=== PATIENT | male | born 1975 | race African-American/Black ===

== ENCOUNTER 2017-08-12 09:46 | Inpatient (IN) | payer BC, OTHER ==
[~2017-08-12] VITALS: Ht 175.3 cm; Wt 106.6 kg
[2017-08-12 08:00] VITALS: BP 169/137
[2017-08-12] MEDS ORDERED: SACU1TAB7 PO (10:02)
[2017-08-12] MEDS ORDERED: AMLO2.5T45 PO (10:02)
[2017-08-12] MEDS ORDERED: CARV6.2548 PO (10:02)
[2017-08-12] MEDS ORDERED: FURO40TA5 PO (10:02)
[2017-08-12] MEDS ORDERED: ISOS1TAB PO (10:02)
[2017-08-12] MEDS ORDERED: NITROGLYCERIN OINT 1GM/INCH UDPKT TD ONE (10:30)
[2017-08-12] MEDS ORDERED: ASPIRIN 81MG TABLET PO ONE (10:30)
[2017-08-12] MEDS ORDERED: FUROSEMIDE 40MG/4ML VIAL IV ONE (10:30)
[2017-08-12] MEDS ORDERED: NITROGLYCERIN 0.4MG TABLET SL SL PRN (10:30)
[2017-08-12 10:37] LABS: BASOPHILS % 0.9 % (0.0-2.0); EOSINOPHILS % 0.5 % (0.0-5.0); HEMATOCRIT. 42.2 % (42.0-52.0); HEMOGLOBIN. 13.8 g/dL (14.0-18.0); LYMPHOCYTES % 12.4 % (20.0-50.0); MEAN CORPUSCULAR VOLUME 91.4 fL (80.0-94.0); MEAN PLATELET VOLUME 7.8 fl (7.4-10.4); MONOCYTES % 5.8 % (2.0-8.0); NEUTROPHILS % 80.4 % (40.0-76.0); PLATELET 280 x1000/uL (130-400); RED BLOOD CELL COUNT 4.61 mill/uL (4.7-6.1); RED CELL DISTRIBUTION WIDTH 14.7 % (11.6-14.6)
[2017-08-12 10:42] LABS: CLARITY URINE CLEAR (CLEAR); COLOR URINE DARK YELLOW (YELLOW); GLUCOSE URINE NEGATIVE (NEGATIVE); KETONES URINE NEGATIVE (NEGATIVE); LEUKOCYTE ESTERASE URINE NEGATIVE (NEGATIVE); NITRITE URINE NEGATIVE (NEGATIVE); OCCULT BLOOD URINE 1+ (NEGATIVE); PH URINE 5.5 (4.5-8.0); PROTEIN URINE 4+ (NEGATIVE); SPECIFIC GRAVITY URINE 1.024 (1.005-1.030)
[2017-08-12 10:47] LABS: D-DIMER 0.26 mg/L FEU (<0.50); INR 1.1; PROTHROMBIN TIME 11.5 sec (9.4-11.6)
[2017-08-12 10:55] LABS: CARBON DIOXIDE 21 mEq/L (21-32); CHLORIDE 107 mEq/L (98-107)
[2017-08-12 10:59] LABS: *AMPHETAMINES SCREEN URINE NEGATIVE (NEGATIVE); *BARBITURATES SCREEN URINE NEGATIVE (NEGATIVE); *BENZODIAZEPINES SCREEN URINE NEGATIVE (NEGATIVE); *COCAINE SCREEN URINE NEGATIVE (NEGATIVE); CANNABINOID URINE SCREEN NEGATIVE (NEGATIVE); METHADONE URINE SCREEN NEGATIVE (NEGATIVE); OPIATES URINE SCREEN NEGATIVE (NEGATIVE); PHENCYCLIDINE URINE SCREEN NEGATIVE (NEGATIVE)
[2017-08-12] MEDS ORDERED: ENOXAPARIN 120MG/0.8ML SYR SUBCUT ONE (11:15)
[2017-08-12] MEDS ORDERED: ENOXAPARIN 100MG/ML SYR SUBCUT ONE (11:15)
[2017-08-12] MEDS ORDERED: FUROSEMIDE 40MG/4ML VIAL IVP ONE (11:15)
[2017-08-12] MEDS ORDERED: DOCUSATE SODIUM 100MG CAPSULE PO PRN (13:30)
[2017-08-12] MEDS ORDERED: ONDANSETRON HCL 4MG/2ML VIAL IV PRN (13:30)
[2017-08-12] MEDS ORDERED: ENOXAPARIN 40MG/0.4ML SYR SUBCUT SCH (13:30)
[2017-08-12] MEDS ORDERED: IPRATROPIUM/ALBUTEROL 0.5-3(2.5)MG/3ML NEB INH PRN (13:30)
[2017-08-12] MEDS ORDERED: ACETAMINOPHEN 325MG TABLET PO PRN (13:30)
[2017-08-12] MEDS ORDERED: MAGNESIUM/ALUMINUM HYDROXIDE/SIMETHICONE 30ML UDC PO PRN (13:30)
[2017-08-12] MEDS ORDERED: CLONIDINE 0.1MG TABLET ONE (16:26)
[2017-08-12] MEDS ORDERED: CLONIDINE 0.1MG TABLET PO PRN ×2 (16:30→20:00)
[2017-08-12 18:00] VITALS: BP 169/137
[2017-08-12 18:16] VITALS: BP 169/137
[2017-08-12] MEDS ORDERED: ATOR20TA65 PO (18:29)
[2017-08-12] MEDS: FUROSEMIDE 40MG/4ML VIAL IV SCH (18:37)
[2017-08-12] MEDS: CARVEDILOL 6.25 MG TABLET PO SCH (18:38)
[2017-08-12 20:00] VITALS: BP 168/114
[2017-08-12] MEDS ORDERED: ENOXAPARIN 30MG/0.3ML SYR SUBCUT SCH (21:00)
[2017-08-12] MEDS ORDERED: ATORVASTATIN CALCIUM 20MG TABLET PO SCH (21:00)
[2017-08-12] MEDS: AMLODIPINE 5MG TABLET PO SCH (21:02)
[2017-08-12] MEDS: ISOSORB DINIT/HYDRALAZINE HCL 20/37.5MG TABLET PO SCH (21:03)
[2017-08-12] MEDS ORDERED: ISOSORB DINIT/HYDRALAZINE HCL 20/37.5MG TABLET PO SCH (22:00)
[2017-08-13] VITALS: BP 145/82
[2017-08-13 04:00] VITALS: BP 156/111
[2017-08-13] MEDS: ISOSORB DINIT/HYDRALAZINE HCL 20/37.5MG TABLET PO SCH ×3 (05:03→21:01)
[2017-08-13 06:28] LABS: BASOPHILS % 0.4 % (0.0-2.0); HEMATOCRIT. 42.6 % (42.0-52.0); LYMPHOCYTES % 16.8 % (20.0-50.0); MEAN CORPUSCULAR HEMOGLOBIN 30.1 pg (28.0-32.0); MEAN CORPUSCULAR VOLUME 91.4 fL (80.0-94.0); MEAN PLATELET VOLUME 7.9 fl (7.4-10.4); NEUTROPHILS % 73.8 % (40.0-76.0); PLATELET 317 x1000/uL (130-400); RED BLOOD CELL COUNT 4.66 mill/uL (4.7-6.1); RED CELL DISTRIBUTION WIDTH 14.4 % (11.6-14.6)
[2017-08-13 07:09] LABS: PHOSPHORUS 3.7 mg/dL (2.5-4.9); TROPONIN I 0.22 ng/mL (0.00-0.04)
[2017-08-13] MEDS: OMEPRAZOLE 20MG CAPSULE EXTENDED RELEASE PO SCH (07:21)
[2017-08-13 08:00] VITALS: BP 151/103
[2017-08-13] MEDS: CARVEDILOL 6.25 MG TABLET PO SCH (08:12)
[2017-08-13] MEDS: AMLODIPINE 5MG TABLET PO SCH ×2 (08:12→21:00)
[2017-08-13] MEDS: FUROSEMIDE 40MG/4ML VIAL IV SCH (08:12)
[2017-08-13] MEDS ORDERED: CARVEDILOL 6.25 MG TABLET PO SCH (09:00)
[2017-08-13] MEDS ORDERED: FUROSEMIDE 40MG TABLET PO SCH (09:00)
[2017-08-13] MEDS ORDERED: AMLODIPINE 2.5MG TABLET PO SCH (09:00)
[2017-08-13] MEDS: SPIRONOLACTONE 25MG TABLET PO SCH (11:31)
[2017-08-13] MEDS: POTASSIUM CHLORIDE 20MEQ TABLET SR PO SCH (11:31)
[2017-08-13 12:00] VITALS: BP 147/106
[2017-08-13] MEDS ORDERED: MAGNESIUM 1 G PREMIX 100 ML IV NR (13:00)
[2017-08-13 16:00] VITALS: BP 154/114
[2017-08-13] MEDS ORDERED: FUROSEMIDE 40MG/4ML VIAL IV SCH (17:15)
[2017-08-13 20:00] VITALS: BP 159/108
[2017-08-13] MEDS ORDERED: ATORVASTATIN CALCIUM 20MG TABLET PO SCH (21:00)
[2017-08-13] MEDS: CARVEDILOL 12.5MG TABLET PO SCH (21:00)
[2017-08-13] MEDS: ATORVASTATIN CALCIUM 40MG TABLET PO SCH (21:01)
[2017-08-14] VITALS: BP 128/72
[2017-08-14 04:00] VITALS: BP 147/98
[2017-08-14 06:05] LABS: BASOPHILS % 0.9 % (0.0-2.0); EOSINOPHILS % 2.5 % (0.0-5.0); HEMATOCRIT. 41.6 % (42.0-52.0); HEMOGLOBIN. 13.7 g/dL (14.0-18.0); LYMPHOCYTES % 15.9 % (20.0-50.0); MEAN CORPUSCULAR VOLUME 91.4 fL (80.0-94.0); MEAN PLATELET VOLUME 7.9 fl (7.4-10.4); NEUTROPHILS % 71.7 % (40.0-76.0); PLATELET 350 x1000/uL (130-400); RED BLOOD CELL COUNT 4.55 mill/uL (4.7-6.1); RED CELL DISTRIBUTION WIDTH 14.4 % (11.6-14.6)
[2017-08-14] MEDS: ISOSORB DINIT/HYDRALAZINE HCL 20/37.5MG TABLET PO SCH ×3 (06:53→21:27)
[2017-08-14 08:00] VITALS: BP 122/70
[2017-08-14] MEDS: POTASSIUM CHLORIDE 20MEQ TABLET SR PO SCH (08:30)
[2017-08-14] MEDS: CARVEDILOL 12.5MG TABLET PO SCH ×2 (08:30→21:27)
[2017-08-14] MEDS: OMEPRAZOLE 20MG CAPSULE EXTENDED RELEASE PO SCH (08:30)
[2017-08-14] MEDS: SPIRONOLACTONE 25MG TABLET PO SCH (08:30)
[2017-08-14] MEDS: FUROSEMIDE 40MG/4ML VIAL IV SCH ×3 (08:30→17:05)
[2017-08-14] MEDS: AMLODIPINE 5MG TABLET PO SCH ×2 (08:31→21:27)
[2017-08-14 12:00] VITALS: BP 136/97
[2017-08-14 16:00] VITALS: BP 136/97
[2017-08-14 20:00] VITALS: BP 142/95
[2017-08-14] MEDS: ENTRESTO 24 MG/26 MG PO SCH (21:27)
[2017-08-14] MEDS: ATORVASTATIN CALCIUM 40MG TABLET PO SCH (21:27)
[2017-08-15] VITALS: BP 139/95
[2017-08-15 04:00] VITALS: BP 117/76
[2017-08-15] MEDS: ISOSORB DINIT/HYDRALAZINE HCL 20/37.5MG TABLET PO SCH ×3 (05:49→21:30)
[2017-08-15 06:52] LABS: EOSINOPHILS % 2.1 % (0.0-5.0); HEMATOCRIT. 43.6 % (42.0-52.0); HEMOGLOBIN. 14.2 g/dL (14.0-18.0); LYMPHOCYTES % 15.4 % (20.0-50.0); MEAN CORPUSCULAR HEMOGLOBIN 29.9 pg (28.0-32.0); MEAN CORPUSCULAR VOLUME 91.7 fL (80.0-94.0); MEAN PLATELET VOLUME 7.8 fl (7.4-10.4); MONOCYTES % 11.7 % (2.0-8.0); NEUTROPHILS % 69.8 % (40.0-76.0); PLATELET 322 x1000/uL (130-400); RED BLOOD CELL COUNT 4.76 mill/uL (4.7-6.1); RED CELL DISTRIBUTION WIDTH 14.5 % (11.6-14.6)
[2017-08-15 08:00] VITALS: BP 129/85
[2017-08-15] MEDS: ENTRESTO 24 MG/26 MG PO SCH ×2 (08:26→21:29)
[2017-08-15] MEDS: OMEPRAZOLE 20MG CAPSULE EXTENDED RELEASE PO SCH (08:27)
[2017-08-15] MEDS: POTASSIUM CHLORIDE 20MEQ TABLET SR PO SCH (08:27)
[2017-08-15] MEDS: SPIRONOLACTONE 25MG TABLET PO SCH (08:27)
[2017-08-15] MEDS: CARVEDILOL 12.5MG TABLET PO SCH ×2 (08:28→21:30)
[2017-08-15] MEDS: AMLODIPINE 5MG TABLET PO SCH ×2 (08:29→21:30)
[2017-08-15] MEDS: FUROSEMIDE 40MG/4ML VIAL IV SCH (08:29)
[2017-08-15] MEDS ORDERED: METOLAZONE 2.5MG TABLET PO NR (09:30)
[2017-08-15 12:00] VITALS: BP 133/78
[2017-08-15 16:00] VITALS: BP 102/66
[2017-08-15 20:00] VITALS: BP 125/93
[2017-08-15] MEDS: FUROSEMIDE 100MG/10ML VIAL IV SCH (21:29)
[2017-08-15] MEDS: ATORVASTATIN CALCIUM 40MG TABLET PO SCH (21:30)
[2017-08-16] VITALS: BP 98/58
[2017-08-16 04:00] VITALS: BP 112/79
[2017-08-16] MEDS: ISOSORB DINIT/HYDRALAZINE HCL 20/37.5MG TABLET PO SCH (06:00)
[2017-08-16 08:00] VITALS: BP 130/98
[2017-08-16 08:04] LABS: BASOPHILS % 1.1 % (0.0-2.0); EOSINOPHILS % 2.3 % (0.0-5.0); HEMATOCRIT. 48.5 % (42.0-52.0); HEMOGLOBIN. 16.2 g/dL (14.0-18.0); LYMPHOCYTES % 17.1 % (20.0-50.0); MEAN CORPUSCULAR HEMOGLOBIN 30.5 pg (28.0-32.0); MEAN CORPUSCULAR VOLUME 91.2 fL (80.0-94.0); MEAN PLATELET VOLUME 7.7 fl (7.4-10.4); NEUTROPHILS % 66.5 % (40.0-76.0); PLATELET 331 x1000/uL (130-400); RED BLOOD CELL COUNT 5.32 mill/uL (4.7-6.1); RED CELL DISTRIBUTION WIDTH 14.7 % (11.6-14.6)
[2017-08-16] MEDS: POTASSIUM CHLORIDE 20MEQ TABLET SR PO SCH (08:53)
[2017-08-16] MEDS: CARVEDILOL 12.5MG TABLET PO SCH (08:54)
[2017-08-16] MEDS: ENTRESTO 24 MG/26 MG PO SCH (08:54)
[2017-08-16] MEDS: SPIRONOLACTONE 25MG TABLET PO SCH (08:54)
[2017-08-16] MEDS: AMLODIPINE 5MG TABLET PO SCH (08:56)
[2017-08-16] MEDS ORDERED: FAMOTIDINE 20MG TABLET PO SCH (09:00)
[2017-08-16] MEDS: FUROSEMIDE 100MG/10ML VIAL IV SCH (09:20)
== END 2017-08-16 12:29 | disposition home or self-care (01) | DRG 291 ==
LOC: ER 11:43 → 7WST 12:21 → EDBEDREQ 12:27 → ENRESERV 13:16
PROVIDERS: ADMIT Family Medicine Adult Medicine; ATTEND Family Medicine Adult Medicine
DX: I13.0 Hypertensive heart and chronic kidney disease with heart failure and stage 1 through stage 4 chronic kidney disease, or unspecified chronic kidney disease (principal); D66 Hereditary factor VIII deficiency; E11.22 Type 2 diabetes mellitus with diabetic chronic kidney disease; I27.20 Pulmonary hypertension, unspecified; E44.0 Moderate protein-calorie malnutrition; E83.42 Hypomagnesemia; I50.43 Acute on chronic combined systolic (congestive) and diastolic (congestive) heart failure; I42.9 Cardiomyopathy, unspecified; E66.9 Obesity, unspecified; E78.5 Hyperlipidemia, unspecified; I34.0 Nonrheumatic mitral (valve) insufficiency; N18.3 Chronic kidney disease, stage 3 (moderate); Z79.899 Other long term (current) drug therapy; Z82.49 Family history of ischemic heart disease and other diseases of the circulatory system; Z68.34 Body mass index [BMI] 34.0-34.9, adult; Z91.14 Patient's other noncompliance with medication regimen; Z91.19 Patient's noncompliance with other medical treatment and regimen; Z72.89 Other problems related to lifestyle
CPT/HCPCS: 36415; 71010; 80048; 80053; 80061; 80076; 80305; 81001; 82150; 83036; 83690; 83735; 83880; 84100; 84484; 85025; 85379; 85610; 93005; 93306; 93970; 96374; 96376; 99291; G0482; J1650; J1940; J3475; J7050

== ENCOUNTER 2019-10-04 14:10 | Inpatient (IN) | payer OTHER ==
[~2019-10-04] VITALS: Ht 175.3 cm; Wt 96.2 kg
[~2019-10-04 14:10] MED LIST: AMLO2.5T45 PO; ATOR20TA65 PO; CARV6.2548 PO; FURO40TA5 PO; ISOS1TAB PO; SACU1TAB7 PO
[2019-10-04] MEDS ORDERED: SODIUM CHLORIDE 0.9% 500 ML IV ONE (15:56)
[2019-10-04 16:18] LABS: BASOPHILS % 1.1 % (0.0-2.0); HEMATOCRIT. 31.1 % (42.0-52.0); HEMOGLOBIN. 10.5 g/dL (14.0-18.0); LYMPHOCYTES % 15.7 % (20.0-50.0); MEAN CORPUSCULAR HEMOGLOBIN 32.2 pg (28.0-32.0); MEAN CORPUSCULAR VOLUME 95.7 fL (80.0-94.0); MEAN PLATELET VOLUME 8.4 fl (7.4-10.4); MONOCYTES % 7.8 % (2.0-8.0); NEUTROPHILS % 74.4 % (40.0-76.0); PLATELET 202 x1000/uL (130-400); RED BLOOD CELL COUNT 3.25 mill/uL (4.7-6.1); RED CELL DISTRIBUTION WIDTH 13.8 % (11.6-14.6)
[2019-10-04 16:23] LABS: CHLORIDE 100 mEq/L (98-107)
[2019-10-04 16:26] LABS: ETHANOL BLOOD < 10 mg/dL
[2019-10-04 19:09] LABS: CLARITY URINE CLEAR (CLEAR); COLOR URINE YELLOW (YELLOW); KETONES URINE NEGATIVE (NEGATIVE); LEUKOCYTE ESTERASE URINE NEGATIVE (NEGATIVE); NITRITE URINE NEGATIVE (NEGATIVE); OCCULT BLOOD URINE NEGATIVE (NEGATIVE); PROTEIN URINE TRACE (NEGATIVE); SPECIFIC GRAVITY URINE 1.018 (1.005-1.030)
[2019-10-04 19:19] LABS: *AMPHETAMINES SCREEN URINE NEGATIVE (NEGATIVE)
[2019-10-04 19:20] LABS: *BARBITURATES SCREEN URINE NEGATIVE (NEGATIVE); *BENZODIAZEPINES SCREEN URINE NEGATIVE (NEGATIVE); *COCAINE SCREEN URINE NEGATIVE (NEGATIVE); METHADONE URINE SCREEN NEGATIVE (NEGATIVE)
[2019-10-04 19:21] LABS: CANNABINOID URINE SCREEN NEGATIVE (NEGATIVE); OPIATES URINE SCREEN NEGATIVE (NEGATIVE); PHENCYCLIDINE URINE SCREEN NEGATIVE (NEGATIVE)
[2019-10-04] MEDS ORDERED: IPRATROPIUM/ALBUTEROL 0.5-3(2.5)MG/3ML NEB NEB PRN (19:30)
[2019-10-04] MEDS ORDERED: LORAZEPAM 2MG/ML CPJ IV PRN (19:30)
[2019-10-04] MEDS ORDERED: DIPHENHYDRAMINE 50MG/ML VIAL IV PRN (19:30)
[2019-10-04] MEDS ORDERED: LEVETIRACETAM 500 MG in SODIUM CHLORIDE 0.9% 100 ML IV SCH (19:30)
[2019-10-04] MEDS ORDERED: GUAIFENESIN 200MG/10ML SUGAR FREE UDC PO PRN (19:30)
[2019-10-04] MEDS ORDERED: MAGNESIUM/ALUMINUM HYDROXIDE/SIMETHICONE 30ML UDC PO PRN (19:30)
[2019-10-04] MEDS ORDERED: FAMOTIDINE 20MG TABLET PO SCH (21:00)
[2019-10-04 22:00] VITALS: BP 150/91
[2019-10-04] MEDS: AMLODIPINE 2.5MG TABLET PO SCH (23:19)
[2019-10-04] MEDS: FAMOTIDINE 20MG TABLET PO SCH (23:19)
[2019-10-05] VITALS: BP_SYST 118; BP_SYST 121; BP_SYST 126; BP_DIAS 81; BP_DIAS 82; BP_DIAS 85
[2019-10-05] MEDS: DEXT 5%/0.9% NACL 1,000 ML IV SCH ×2 (00:58→16:55)
[2019-10-05 04:00] VITALS: BP 148/92
[2019-10-05 06:39] LABS: BASOPHILS % 0.5 % (0.0-2.0); EOSINOPHILS % 1.8 % (0.0-5.0); HEMOGLOBIN. 9.1 g/dL (14.0-18.0); LYMPHOCYTES % 23.6 % (20.0-50.0); MEAN CORPUSCULAR HEMOGLOBIN 32.5 pg (28.0-32.0); MEAN CORPUSCULAR VOLUME 96.5 fL (80.0-94.0); MEAN PLATELET VOLUME 8.5 fl (7.4-10.4); MONOCYTES % 12.8 % (2.0-8.0); NEUTROPHILS % 61.3 % (40.0-76.0); PLATELET 188 x1000/uL (130-400); RED CELL DISTRIBUTION WIDTH 13.9 % (11.6-14.6)
[2019-10-05] MEDS: SODIUM CHLORIDE 0.9% INJ 3ML FLUSH IVF SCH ×3 (06:57→21:12)
[2019-10-05 08:00] VITALS: BP 120/76
[2019-10-05] MEDS: FAMOTIDINE 20MG TABLET PO SCH ×2 (08:47→16:50)
[2019-10-05] MEDS: AMLODIPINE 2.5MG TABLET PO SCH (08:47)
[2019-10-05] MEDS: ENOXAPARIN 30MG/0.3ML SYR SUBCUT SCH ×2 (08:48→08:52)
[2019-10-05] MEDS ORDERED: FUROSEMIDE 40MG TABLET PO SCH (09:00)
[2019-10-05 09:27] LABS: CHLORIDE 104 mEq/L (98-107)
[2019-10-05 09:40] LABS: PHOSPHORUS 3.4 mg/dL (2.5-4.9)
[2019-10-05 12:00] VITALS: BP_SYST 122; BP_SYST 146; BP_SYST 149; BP_DIAS 76; BP_DIAS 89; BP_DIAS 90
[2019-10-05 16:00] VITALS: BP 137/78
[2019-10-05 20:45] VITALS: BP 109/65
[2019-10-05] MEDS: CARVEDILOL 3.125 MG TABLET PO SCH (21:00)
[2019-10-05] MEDS: ATORVASTATIN CALCIUM 20MG TABLET PO SCH (21:04)
[2019-10-05] MEDS: SACUBITRIL/VALSARTAN 24/26 TAB PO SCH (21:05)
[2019-10-06 00:43] VITALS: BP 145/103
[2019-10-06] MEDS: SODIUM CHLORIDE 0.9% INJ 3ML FLUSH IVF SCH ×3 (06:01→21:09)
[2019-10-06 08:00] VITALS: BP 133/93
[2019-10-06] MEDS: SACUBITRIL/VALSARTAN 24/26 TAB PO SCH ×2 (08:27→21:09)
[2019-10-06] MEDS: FAMOTIDINE 20MG TABLET PO SCH ×2 (08:27→18:15)
[2019-10-06] MEDS: CARVEDILOL 3.125 MG TABLET PO SCH ×2 (08:27→21:09)
[2019-10-06 10:39] LABS: BASOPHILS % 0.8 % (0.0-2.0); EOSINOPHILS % 2.5 % (0.0-5.0); HEMATOCRIT. 24.4 % (42.0-52.0); HEMOGLOBIN. 8.3 g/dL (14.0-18.0); LYMPHOCYTES % 23.3 % (20.0-50.0); MEAN CORPUSCULAR HEMOGLOBIN 32.8 pg (28.0-32.0); MEAN PLATELET VOLUME 7.9 fl (7.4-10.4); MONOCYTES % 13.9 % (2.0-8.0); NEUTROPHILS % 59.5 % (40.0-76.0); PLATELET 174 x1000/uL (130-400); RED BLOOD CELL COUNT 2.52 mill/uL (4.7-6.1); RED CELL DISTRIBUTION WIDTH 14.2 % (11.6-14.6)
[2019-10-06 11:24] LABS: CHLORIDE 107 mEq/L (98-107)
[2019-10-06 12:00] VITALS: BP_SYST 139; BP_SYST 145; BP_SYST 147; BP_DIAS 85; BP_DIAS 96; BP_DIAS 97
[2019-10-06 16:00] VITALS: BP 136/86
[2019-10-06 20:00] VITALS: BP 143/77
[2019-10-06] MEDS: ATORVASTATIN CALCIUM 20MG TABLET PO SCH (21:09)
[2019-10-06] MEDS ORDERED: CLONIDINE 0.1MG TABLET PO PRN (22:00)
[2019-10-07] VITALS: BP 126/97
[2019-10-07 04:00] VITALS: BP 124/85
[2019-10-07] MEDS: SODIUM CHLORIDE 0.9% INJ 3ML FLUSH IVF SCH ×2 (05:11→14:00)
[2019-10-07 06:49] LABS: HEMATOCRIT. 25.3 % (42.0-52.0); HEMOGLOBIN. 8.5 g/dL (14.0-18.0); MEAN CORPUSCULAR HEMOGLOBIN 32.6 pg (28.0-32.0); MEAN PLATELET VOLUME 7.9 fl (7.4-10.4); PLATELET 203 x1000/uL (130-400); RED BLOOD CELL COUNT 2.61 mill/uL (4.7-6.1); RED CELL DISTRIBUTION WIDTH 14.4 % (11.6-14.6)
[2019-10-07 06:55] LABS: PARTIAL THROMBOPLASTIN TIME 30.5 sec (23.4-31.0)
[2019-10-07 07:49] LABS: CHLORIDE 106 mEq/L (98-107)
[2019-10-07 08:00] VITALS: BP 120/92
[2019-10-07] MEDS: SACUBITRIL/VALSARTAN 24/26 TAB PO SCH ×2 (09:00→21:05)
[2019-10-07] MEDS: FAMOTIDINE 20MG TABLET PO SCH ×2 (09:00→17:44)
[2019-10-07] MEDS: CARVEDILOL 3.125 MG TABLET PO SCH ×2 (09:00→21:06)
[2019-10-07 12:00] VITALS: BP 154/85
[2019-10-07] MEDS ORDERED: MIDAZOLAM HCL 5 MG/5 ML VIAL ONE (13:39)
[2019-10-07] MEDS ORDERED: FENTANYL CITRATE/PF 50MCG/ML 2ML VIAL ONE (13:39)
[2019-10-07 14:05] LABS: PLATELET ESTIMATE NORMAL
[2019-10-07] MEDS ORDERED: MIDAZOLAM HCL 5 MG/5 ML VIAL IV PRN (14:07)
[2019-10-07] MEDS ORDERED: FENTANYL CITRATE/PF 50MCG/ML 2ML VIAL IV PRN (14:08)
[2019-10-07 16:00] VITALS: BP 142/82
[2019-10-07 20:00] VITALS: BP 120/76
[2019-10-07] MEDS: ATORVASTATIN CALCIUM 20MG TABLET PO SCH (21:06)
[2019-10-08] VITALS: BP 140/88
[2019-10-08 04:00] VITALS: BP 145/88
[2019-10-08 08:00] VITALS: BP 150/98
[2019-10-08 08:27] LABS: HAPTOGLOBIN 218 mg/dL (30-200)
[2019-10-08] MEDS: FAMOTIDINE 20MG TABLET PO SCH (08:43)
[2019-10-08] MEDS: CARVEDILOL 3.125 MG TABLET PO SCH (08:43)
[2019-10-08] MEDS: SACUBITRIL/VALSARTAN 24/26 TAB PO SCH (08:43)
== END 2019-10-08 14:15 | disposition home or self-care (01) | DRG 73 ==
LOC: ER 14:10 → 6WST 19:01 → ENRESERV 20:33
PROVIDERS: ADMIT Internal Medicine; ATTEND Internal Medicine
PROC: 0DJ08ZZ Inspection of Upper Intestinal Tract, Via Natural or Artificial Opening Endoscopic (ICD-10-PCS; principal; 2019-10-07)
DX: G90.8 Other disorders of autonomic nervous system (principal); D66 Hereditary factor VIII deficiency; I50.22 Chronic systolic (congestive) heart failure; E87.1 Hypo-osmolality and hyponatremia; I42.9 Cardiomyopathy, unspecified; N17.9 Acute kidney failure, unspecified; I13.0 Hypertensive heart and chronic kidney disease with heart failure and stage 1 through stage 4 chronic kidney disease, or unspecified chronic kidney disease; G45.9 Transient cerebral ischemic attack, unspecified; I67.82 Cerebral ischemia; R74.0 Nonspecific elevation of levels of transaminase and lactic acid dehydrogenase [LDH]; I95.9 Hypotension, unspecified; E78.00 Pure hypercholesterolemia, unspecified; E78.5 Hyperlipidemia, unspecified; E86.1 Hypovolemia; N18.9 Chronic kidney disease, unspecified; D53.9 Nutritional anemia, unspecified; J06.9 Acute upper respiratory infection, unspecified; G31.9 Degenerative disease of nervous system, unspecified; I25.10 Atherosclerotic heart disease of native coronary artery without angina pectoris; K22.2 Esophageal obstruction; K29.70 Gastritis, unspecified, without bleeding; K44.9 Diaphragmatic hernia without obstruction or gangrene; Z79.899 Other long term (current) drug therapy; Z83.3 Family history of diabetes mellitus; Z82.49 Family history of ischemic heart disease and other diseases of the circulatory system; Z79.82 Long term (current) use of aspirin
CPT/HCPCS: 36415; 70551; 71045; 80048; 80305; 80320; 81003; 82270; 82668; 83010; 83615; 83735; 83880; 84100; 84443; 84484; 85250; 93005; 93306; 93970; 95816; 99285; J1650; J2250; J3010; J7030; J7042; G0480

== ENCOUNTER 2022-01-22 21:28 | Emergency (ER) | payer OTHER ==
[~2022-01-22] VITALS: Ht 175.3 cm; Wt 109.0 kg
[~2022-01-22 21:28] MED LIST changes: -SACU1TAB7 PO
[2022-01-22 21:30] VITALS: BP 112/67
== END 2022-01-22 23:38 | disposition left against medical advice (07) ==
LOC: ER 21:28
DX: I95.9 Hypotension, unspecified (principal); R53.1 Weakness; R42 Dizziness and giddiness; I11.0 Hypertensive heart disease with heart failure; I50.9 Heart failure, unspecified; Z79.899 Other long term (current) drug therapy
CPT/HCPCS: 99281

== ENCOUNTER → 2023-11-23 | Outpatient (CLI) | payer OTHER ==
[~2023-11-23] MED LIST changes: -ISOS1TAB PO; +ISOS1TAB2 PO
== END | disposition home or self-care (01) ==
LOC: RAD 10:21
PROVIDERS: ATTEND Specialist
DX: R05.9 Cough, unspecified (principal)
CPT/HCPCS: 71046

== ENCOUNTER 2023-12-09 13:37 | Emergency (ER) | payer OTHER ==
[~2023-12-09] VITALS: Ht 175.3 cm; Wt 103.0 kg
[2023-12-09 13:40] VITALS: O2SAT 100
[2023-12-09 14:29] LABS: BASOPHILS % 3.1 % (0.0-2.0); EOSINOPHILS % 3.1 % (0.0-5.0); HEMATOCRIT. 33.2 % (42.0-52.0); HEMOGLOBIN. 11.5 g/dL (14.0-18.0); LYMPHOCYTES % 33.9 % (20.0-50.0); MEAN CORPUSCULAR HEMOGLOBIN 31.5 pg (28.0-32.0); MEAN CORPUSCULAR HGB CONC 34.7 g/dL (31.0-37.0); MEAN CORPUSCULAR VOLUME 90.8 fL (80.0-94.0); MEAN PLATELET VOLUME 7.9 fl (7.4-10.4); MONOCYTES % 6.1 % (2.0-8.0); NEUTROPHILS % 53.8 % (40.0-76.0); PLATELET 163 x1000/uL (130-400); RED BLOOD CELL COUNT 3.66 mill/uL (4.7-6.1); RED CELL DISTRIBUTION WIDTH 18.2 % (11.6-14.6); WHITE BLOOD COUNT 5.4 x1000/uL (4.5-11.0)
[2023-12-09 14:43] LABS: ALANINE AMINOTRANSFERASE 56 IU/L (10-49); ALBUMIN 3.5 g/dL (3.2-4.8); ASPARTATE AMINOTRANSFERASE 80 IU/L (<34); BILIRUBIN TOTAL 0.6 mg/dL (0.1-1.0); CALCIUM 8.3 mg/dL (8.7-10.4); CARBON DIOXIDE 22 mEq/L (21-32); CHLORIDE 103 mEq/L (98-107); CREATININE 2.1 mg/dL (0.6-1.3); GLUCOSE 119 mg/dL (70-105); POTASSIUM 3.6 mEq/L (3.5-5.1); PROTEIN TOTAL 6.7 g/dL (6.0-8.3); SODIUM 137 mEq/L (136-145); TROPONIN I HIGH SENSITIVITY 35 ng/L (3.0-53); UREA NITROGEN BLOOD 39 mg/dL (9-23)
[2023-12-09 16:14] LABS: D-DIMER < 0.19 mg/L FEU (<0.50); INR 1.1; PARTIAL THROMBOPLASTIN TIME 31.4 sec (23.4-31.0); PROTHROMBIN TIME 11.8 sec (9.6-11.0)
[2023-12-09 16:55] VITALS: BP 138/87; PULSE 87; RESP 16; TEMP 98.2
== END 2023-12-09 18:23 | disposition left against medical advice (07) ==
LOC: ER 13:37
DX: N28.9 Disorder of kidney and ureter, unspecified (principal); R07.81 Pleurodynia; R14.0 Abdominal distension (gaseous); I11.0 Hypertensive heart disease with heart failure; I50.9 Heart failure, unspecified; Z88.8 Allergy status to other drugs, medicaments and biological substances
CPT/HCPCS: 80053; 83880; 85025; 85379; 85610; 85730; 84484; 36415; 71045; 74176; 93005; 99285; Z7610 ×2

== ENCOUNTER 2023-12-22 08:47 | Emergency (ER) | payer OTHER ==
[~2023-12-22] VITALS: Ht 177.8 cm; Wt 105.0 kg
[2023-12-22 08:49] VITALS: O2SAT 95
[2023-12-22 10:01] LABS: BASOPHILS % 3.5 % (0.0-2.0); EOSINOPHILS % 3.5 % (0.0-5.0); HEMATOCRIT. 31.7 % (42.0-52.0); HEMOGLOBIN. 10.4 g/dL (14.0-18.0); LYMPHOCYTES % 28.4 % (20.0-50.0); MEAN CORPUSCULAR HEMOGLOBIN 31.9 pg (28.0-32.0); MEAN CORPUSCULAR HGB CONC 32.8 g/dL (31.0-37.0); MEAN CORPUSCULAR VOLUME 97.2 fL (80.0-94.0); MEAN PLATELET VOLUME 7.9 fl (7.4-10.4); MONOCYTES % 9.5 % (2.0-8.0); NEUTROPHILS % 55.1 % (40.0-76.0); PLATELET 234 x1000/uL (130-400); RED BLOOD CELL COUNT 3.27 mill/uL (4.7-6.1); WHITE BLOOD COUNT 3.4 x1000/uL (4.5-11.0)
[2023-12-22 10:28] LABS: ALANINE AMINOTRANSFERASE 41 IU/L (10-49); ALBUMIN 3.9 g/dL (3.2-4.8); ASPARTATE AMINOTRANSFERASE 48 IU/L (<34); BILIRUBIN TOTAL 0.4 mg/dL (0.1-1.0); CALCIUM 8.4 mg/dL (8.7-10.4); CARBON DIOXIDE 24 mEq/L (21-32); CHLORIDE 107 mEq/L (98-107); CREATININE 2.3 mg/dL (0.6-1.3); GLUCOSE 120 mg/dL (70-105); PROTEIN TOTAL 7.1 g/dL (6.0-8.3); SODIUM 140 mEq/L (136-145); TROPONIN I HIGH SENSITIVITY 20 ng/L (3.0-53); UREA NITROGEN BLOOD 41 mg/dL (9-23)
[2023-12-22 12:36] VITALS: BP 119/64; PULSE 84; RESP 18; TEMP 97.9
== END 2023-12-22 12:37 | disposition home or self-care (01) ==
LOC: ER 08:47 → CANBEDREQ 12:35 → ER 12:37
DX: R55 Syncope and collapse (principal); R53.1 Weakness; I95.9 Hypotension, unspecified; I11.0 Hypertensive heart disease with heart failure; I50.9 Heart failure, unspecified; Z98.890 Other specified postprocedural states; Z88.8 Allergy status to other drugs, medicaments and biological substances
CPT/HCPCS: 36415; 71045; 80053; 83880; 84484; 85025; 93005; 99285

== ENCOUNTER 2024-02-17 12:07 | Inpatient (IN) | payer OTHER ==
[2024-02-17] VITALS: BP 104/65; PULSE 93; RESP 18; TEMP 98.3
[~2024-02-17] VITALS: Ht 175.3 cm; Wt 95.3 kg
[2024-02-17 12:56] LABS: HEMOGLOBIN. 11.9 g/dL (14.0-18.0); MEAN CORPUSCULAR VOLUME 91.6 fL (80.0-94.0); MEAN PLATELET VOLUME 8.1 fl (7.4-10.4); PLATELET 107 x1000/uL (130-400); RED BLOOD CELL COUNT 3.61 mill/uL (4.7-6.1); RED CELL DISTRIBUTION WIDTH 18.5 % (11.6-14.6); WHITE BLOOD COUNT 4.7 x1000/uL (4.5-11.0)
[2024-02-17 13:05] LABS: DIFFERENTIAL COMMENT 1
[2024-02-17 13:20] LABS: ALANINE AMINOTRANSFERASE 70 IU/L (10-49); ALBUMIN 3.2 g/dL (3.2-4.8); ASPARTATE AMINOTRANSFERASE 192 IU/L (<34); BILIRUBIN TOTAL 1.2 mg/dL (0.1-1.0); CALCIUM 7.9 mg/dL (8.7-10.4); CARBON DIOXIDE 15 mEq/L (21-32); CHLORIDE 96 mEq/L (98-107); CREATININE 2.2 mg/dL (0.6-1.3); GLUCOSE 135 mg/dL (70-105); POTASSIUM 4.2 mEq/L (3.5-5.1); PROTEIN TOTAL 6.5 g/dL (6.0-8.3); SODIUM 130 mEq/L (136-145); TROPONIN I HIGH SENSITIVITY 20 ng/L (3.0-53); UREA NITROGEN BLOOD 31 mg/dL (9-23)
[2024-02-17 13:41] LABS: PLATELET ESTIMATE DECREASED
[2024-02-17 13:42] LABS: ANISOCYTOSIS 1+
[2024-02-17 14:13] LABS: INR 1.1; PARTIAL THROMBOPLASTIN TIME 28.8 sec (23.4-31.0); PROTHROMBIN TIME 12.4 sec (9.6-11.0)
[2024-02-17] MEDS: SODIUM CHLORIDE 0.9% 1,000 ML IV SCH (15:01)
[2024-02-17 22:56] VITALS: BP 137/69; PULSE 101; RESP 18; TEMP 97.7
[2024-02-18] MEDS ORDERED: HYDROCODONE/ACETAMINOPHEN 5/325MG TABLET PO PRN (01:15)
[2024-02-18] MEDS ORDERED: NALOXONE HCL 0.4MG/ML VIAL IV PRN (01:15)
[2024-02-18 04:00] VITALS: BP 119/74; PULSE 96; RESP 18; TEMP 98.2
[2024-02-18 07:12] LABS: HEMATOCRIT. 33.6 % (42.0-52.0); HEMOGLOBIN. 12.1 g/dL (14.0-18.0); MEAN CORPUSCULAR HEMOGLOBIN 33.3 pg (28.0-32.0); MEAN CORPUSCULAR HGB CONC 36.1 g/dL (31.0-37.0); MEAN CORPUSCULAR VOLUME 92.3 fL (80.0-94.0); MEAN PLATELET VOLUME 8.8 fl (7.4-10.4); PLATELET 117 x1000/uL (130-400); RED BLOOD CELL COUNT 3.64 mill/uL (4.7-6.1); RED CELL DISTRIBUTION WIDTH 17.9 % (11.6-14.6); WHITE BLOOD COUNT 4.7 x1000/uL (4.5-11.0)
[2024-02-18 08:00] VITALS: BP 140/90; PULSE 99; RESP 18; TEMP 101.1
[2024-02-18 08:05] LABS: CALCIUM 8.1 mg/dL (8.7-10.4); CHLORIDE 100 mEq/L (98-107); CREATININE 2.2 mg/dL (0.6-1.3); GLUCOSE 99 mg/dL (70-105); POTASSIUM 4.1 mEq/L (3.5-5.1); SODIUM 130 mEq/L (136-145); UREA NITROGEN BLOOD 38 mg/dL (9-23)
[2024-02-18 08:12] LABS: CARBON DIOXIDE < 10 mEq/L (21-32)
[2024-02-18] MEDS: ACETAMINOPHEN 650MG/20.3ML UDC PO PRN (08:53)
[2024-02-18 09:49] LABS: BG BASE EXCESS -3.3 mmol/L (-2.0-2.0); BG CARBOXYHEMOGLOBIN 0.2 % (0.5-1.5); BG DEOXYHEMOGLOBIN 2.3 % (0.0-5.0); BG FRACTION INSPIRED OXYGEN 21; BG HCO3 ACT 19.4 mmol/L (22.0-26.0); BG METHEMOGLOBIN 0.2 % (0.0-1.5); BG OXYGEN SATURATION 97.7 % (92.0-98.5); BG OXYHEMOGLOBIN 97.3 % (94.0-97.0); BG PCO2 27.9 mmHg (35.0-45.0); BG PO2 111.3 mmHg (75.0-100.0); BG SAMPLE SITE RIGHT RADIAL; BG TOTAL HEMOGLOBIN 11.9 g/dL (12.0-18.0); BG VENT MODE ROOM AIR
[2024-02-18] MEDS: CEFTRIAXONE 1GM/50ML 50 ML IV SCH (10:16)
[2024-02-18 10:25] LABS: DIFFERENTIAL COMMENT 1
[2024-02-18] MEDS: MAGNESIUM 2 G PREMIX 50 ML IV SCH (10:42)
[2024-02-18 12:00] VITALS: BP 125/78; PULSE 92; RESP 18; TEMP 99
[2024-02-18] MEDS ORDERED: CETI-243 PO (12:25)
[2024-02-18] MEDS ORDERED: SACU1TAB4 MT (12:25)
[2024-02-18 16:00] VITALS: BP 152/95; PULSE 94; RESP 18; TEMP 98.6
[2024-02-18] MEDS: SUCRALFATE 1G TABLET PO SCH (17:09)
[2024-02-18 18:00] LABS: PLATELET ESTIMATE DECREASED
[2024-02-18] MEDS ORDERED: FURO40TA5 MT (18:54)
[2024-02-18] MEDS ORDERED: DAPA5TAB PO (18:54)
[2024-02-18] MEDS ORDERED: CARV25TA47 PO (18:54)
[2024-02-18] MEDS ORDERED: MAGN400C PO (18:54)
[2024-02-18] MEDS ORDERED: COLC0.6C3 PO (18:54)
[2024-02-18] MEDS ORDERED: ISOS1TAB2 MT (18:54)
[2024-02-18] MEDS ORDERED: ALLO100T MT (18:54)
[2024-02-18 20:00] VITALS: BP 142/88; PULSE 91; RESP 20; TEMP 98.2
[2024-02-18] MEDS: ONDANSETRON HCL 4MG/2ML INJ IV PRN (21:14)
[2024-02-18 22:52] LABS: CLARITY URINE CLEAR (CLEAR); COLOR URINE DARK YELLOW (YELLOW); GLUCOSE URINE NEGATIVE (NEGATIVE); KETONES URINE NEGATIVE (NEGATIVE); LEUKOCYTE ESTERASE URINE NEGATIVE (NEGATIVE); NITRITE URINE NEGATIVE (NEGATIVE); OCCULT BLOOD URINE NEGATIVE (NEGATIVE); PH URINE 5.5 (4.5-8.0); PROTEIN URINE 1+ (NEGATIVE); SPECIFIC GRAVITY URINE 1.018 (1.005-1.030)
[2024-02-18 23:10] LABS: BACTERIA URINE NONE SEEN; RBC URINE 0-2 /hpf (0-2); SQUAMOUS EPITHELIAL CELL URINE NONE SEEN /lpf (RARE/1+); WBC URINE 0-2 /hpf (0-2)
[2024-02-19] VITALS: BP 131/52; PULSE 82; RESP 18; TEMP 98.4
[2024-02-19 04:00] VITALS: BP 137/52; PULSE 85; RESP 18; TEMP 98.5
[2024-02-19 06:15] LABS: HEMATOCRIT. 30.8 % (42.0-52.0); HEMOGLOBIN. 10.9 g/dL (14.0-18.0); MEAN CORPUSCULAR HEMOGLOBIN 32.7 pg (28.0-32.0); MEAN CORPUSCULAR HGB CONC 35.5 g/dL (31.0-37.0); MEAN CORPUSCULAR VOLUME 92.1 fL (80.0-94.0); MEAN PLATELET VOLUME 8.3 fl (7.4-10.4); PLATELET 91 x1000/uL (130-400); RED BLOOD CELL COUNT 3.35 mill/uL (4.7-6.1); RED CELL DISTRIBUTION WIDTH 17.9 % (11.6-14.6); WHITE BLOOD COUNT 4.3 x1000/uL (4.5-11.0)
[2024-02-19 06:17] LABS: CHLORIDE 99 mEq/L (98-107); POTASSIUM 3.4 mEq/L (3.5-5.1); SODIUM 131 mEq/L (136-145)
[2024-02-19 06:18] LABS: CALCIUM 8.3 mg/dL (8.7-10.4); CARBON DIOXIDE 16 mEq/L (21-32)
[2024-02-19 06:23] LABS: GLUCOSE 120 mg/dL (70-105); UREA NITROGEN BLOOD 29 mg/dL (9-23)
[2024-02-19 06:25] LABS: ALANINE AMINOTRANSFERASE 77 IU/L (10-49); ALBUMIN 3.3 g/dL (3.2-4.8); ASPARTATE AMINOTRANSFERASE 225 IU/L (<34); BILIRUBIN DIRECT 0.7 mg/dL (<=3.0); BILIRUBIN TOTAL 1.8 mg/dL (0.1-1.0); PHOSPHORUS 1.4 mg/dL (2.5-4.9); PROTEIN TOTAL 7.1 g/dL (6.0-8.3)
[2024-02-19 06:29] LABS: THYROID STIMULATING HORMONE 4.12 uIU/mL (0.55-4.78)
[2024-02-19 07:25] LABS: HEPATITIS B SURFACE ANTIGEN NEGATIVE (Negative)
[2024-02-19 07:46] LABS: HEPATITIS A AB IGM NEGATIVE (Negative)
[2024-02-19 07:47] LABS: DIFFERENTIAL COMMENT 1; HEPATITIS B CORE AB IGM NEGATIVE (Negative); HEPATITIS C AB REACTIVE (Pos) (Negative)
[2024-02-19 07:52] LABS: CORTISOL 21.2 ucg/dL
[2024-02-19 08:00] VITALS: BP 152/85; PULSE 85; RESP 18; TEMP 97.6
[2024-02-19] MEDS: PANTOPRAZOLE 40MG DR TABLET PO SCH (09:35)
[2024-02-19] MEDS: MAGNESIUM 2 G PREMIX 50 ML IV NR (09:44)
[2024-02-19] MEDS: POTASSIUM PHOSPHATE 30 MMOL in SODIUM CHLORIDE 0.9% 490 ML IV NR (09:44)
[2024-02-19 11:02] LABS: BG BASE EXCESS 1.5 mmol/L (-2.0-2.0); BG CARBOXYHEMOGLOBIN 0.1 % (0.5-1.5); BG DEOXYHEMOGLOBIN 2.6 % (0.0-5.0); BG FRACTION INSPIRED OXYGEN 21; BG HCO3 ACT 24.6 mmol/L (22.0-26.0); BG METHEMOGLOBIN 0.3 % (0.0-1.5); BG OXYGEN SATURATION 97.4 % (92.0-98.5); BG PCO2 33.2 mmHg (35.0-45.0); BG PH 7.487 (7.350-7.450); BG PO2 96.2 mmHg (75.0-100.0); BG SAMPLE SITE RIGHT RADIAL; BG TOTAL HEMOGLOBIN 11.3 g/dL (12.0-18.0); BG VENT MODE ROOM AIR
[2024-02-19 12:00] VITALS: BP 151/106; PULSE 97; RESP 20; TEMP 98.1
[2024-02-19 16:00] VITALS: BP 158/99; PULSE 89; RESP 20; TEMP 98.3
[2024-02-19 19:40] LABS: GIANT PLATELETS 1+; PLATELET ESTIMATE NORMAL
[2024-02-19 20:00] VITALS: BP 127/56; PULSE 90; RESP 20; TEMP 98
[2024-02-20] VITALS: BP 152/94; PULSE 94; RESP 20; TEMP 98.9
[2024-02-20] MEDS: SERTRALINE HCL 25MG TABLET PO SCH (00:46)
[2024-02-20] MEDS: CLONIDINE 0.1MG TABLET PO PRN (04:22)
[2024-02-20 06:14] LABS: CHLORIDE 100 mEq/L (98-107); POTASSIUM 3.4 mEq/L (3.5-5.1); SODIUM 133 mEq/L (136-145)
[2024-02-20 06:15] LABS: EOSINOPHILS % 2.5 % (0.0-5.0); HEMATOCRIT. 33.8 % (42.0-52.0); HEMOGLOBIN. 11.5 g/dL (14.0-18.0); LYMPHOCYTES % 39.7 % (20.0-50.0); MEAN CORPUSCULAR HEMOGLOBIN 31.8 pg (28.0-32.0); MEAN CORPUSCULAR HGB CONC 34.1 g/dL (31.0-37.0); MEAN CORPUSCULAR VOLUME 93.4 fL (80.0-94.0); MEAN PLATELET VOLUME 9.1 fl (7.4-10.4); MONOCYTES % 8.2 % (2.0-8.0); NEUTROPHILS % 48.6 % (40.0-76.0); PLATELET 107 x1000/uL (130-400); RED BLOOD CELL COUNT 3.62 mill/uL (4.7-6.1); RED CELL DISTRIBUTION WIDTH 18.7 % (11.6-14.6); WHITE BLOOD COUNT 5.4 x1000/uL (4.5-11.0)
[2024-02-20 06:16] LABS: CARBON DIOXIDE 20 mEq/L (21-32)
[2024-02-20 06:19] LABS: UREA NITROGEN BLOOD 15 mg/dL (9-23)
[2024-02-20 06:21] LABS: CREATININE 1.5 mg/dL (0.6-1.3); GLUCOSE 123 mg/dL (70-105)
[2024-02-20 06:22] LABS: ALANINE AMINOTRANSFERASE 52 IU/L (10-49)
[2024-02-20 06:23] LABS: ALBUMIN 3.4 g/dL (3.2-4.8); ASPARTATE AMINOTRANSFERASE 168 IU/L (<34); BILIRUBIN DIRECT 0.6 mg/dL (<=3.0); BILIRUBIN TOTAL 1.4 mg/dL (0.1-1.0); PHOSPHORUS 2.4 mg/dL (2.5-4.9); PROTEIN TOTAL 7.2 g/dL (6.0-8.3)
[2024-02-20 07:09] LABS: DIFFERENTIAL COMMENT 1
[2024-02-20 08:00] VITALS: BP 155/89; PULSE 96; RESP 20; TEMP 98.3
[2024-02-20 09:09] LABS: IMMUNOGLOBULIN A 276 mg/dL (90-386); IMMUNOGLOBULIN G 1893 mg/dL (603-1613); IMMUNOGLOBULIN M 135 mg/dL (20-172)
[2024-02-20] MEDS: POTASSIUM CHLORIDE 20MEQ TABLET SR PO NR (09:38)
[2024-02-20 12:00] VITALS: BP 161/90; PULSE 86; RESP 20; TEMP 98.6
[2024-02-20 15:06] LABS: KAPPA LT CHAINS FREE SERUM 75.4 mg/L (3.3-19.4); KAPPA/LAMBDA RATIO 1.61 (0.26-1.65); LAMBDA LT CHAINS FREE SERUM 46.7 mg/L (5.7-26.3)
[2024-02-20 16:00] VITALS: BP 142/89; PULSE 96; RESP 20; TEMP 98.2
[2024-02-20] MEDS: CEFTRIAXONE 1GM/50ML 50 ML IV NR (17:38)
[2024-02-20] MEDS: POTASSIUM PHOSPHATE 20 MMOL in DEXT 5% WATER 243.3333 ML IV NR (18:20)
[2024-02-20 20:00] VITALS: BP 132/93; PULSE 90; RESP 18; TEMP 97.9
[2024-02-20] MEDS: CARVEDILOL 3.125 MG TABLET PO SCH (21:00)
[2024-02-21] VITALS (7 sets, daily range): BP systolic 106–151; BP diastolic 60–95; PULSE 2–96; RESP 17–20; TEMP 97–98.2
[2024-02-21 06:46] LABS: BASOPHILS % 1.4 % (0.0-2.0); EOSINOPHILS % 3.6 % (0.0-5.0); HEMATOCRIT. 29.4 % (42.0-52.0); LYMPHOCYTES % 29.5 % (20.0-50.0); MEAN CORPUSCULAR HEMOGLOBIN 32.1 pg (28.0-32.0); MEAN CORPUSCULAR VOLUME 94.4 fL (80.0-94.0); MEAN PLATELET VOLUME 8.3 fl (7.4-10.4); NEUTROPHILS % 55.5 % (40.0-76.0); PLATELET 90 x1000/uL (130-400); RED BLOOD CELL COUNT 3.12 mill/uL (4.7-6.1); RED CELL DISTRIBUTION WIDTH 18.4 % (11.6-14.6); WHITE BLOOD COUNT 5.2 x1000/uL (4.5-11.0)
[2024-02-21 06:49] LABS: CHLORIDE 102 mEq/L (98-107); POTASSIUM 3.9 mEq/L (3.5-5.1); SODIUM 134 mEq/L (136-145)
[2024-02-21 06:53] LABS: CALCIUM 8.7 mg/dL (8.7-10.4); CARBON DIOXIDE 24 mEq/L (21-32)
[2024-02-21 06:57] LABS: UREA NITROGEN BLOOD 12 mg/dL (9-23)
[2024-02-21 06:58] LABS: CREATININE 1.7 mg/dL (0.6-1.3); GLUCOSE 103 mg/dL (70-105)
[2024-02-21 06:59] LABS: ALBUMIN 3.1 g/dL (3.2-4.8)
[2024-02-21 07:00] LABS: ALANINE AMINOTRANSFERASE 53 IU/L (10-49); ASPARTATE AMINOTRANSFERASE 121 IU/L (<34); BILIRUBIN DIRECT 0.5 mg/dL (<=3.0); BILIRUBIN TOTAL 1.1 mg/dL (0.1-1.0); PHOSPHORUS 3.2 mg/dL (2.5-4.9); PROTEIN TOTAL 6.3 g/dL (6.0-8.3)
[2024-02-21] MEDS: CEFTRIAXONE 2GM/50ML 50 ML IV SCH (12:47)
[2024-02-21] MEDS: MAGNESIUM 2 G PREMIX 50 ML IV NR (12:48)
[2024-02-21 15:36] LABS: FOLIC ACID (FOLATE) SERUM 9.11 ng/mL (>5.38); VITAMIN B12 SERUM 1570 pg/mL (211-911)
[2024-02-21] MEDS: FOLIC ACID 1MG TABLET PO SCH (16:24)
[2024-02-21] MEDS: MULTIVITAMINS,THER W-MINERALS TABLET PO SCH (16:24)
[2024-02-21] MEDS: THIAMINE HCL 100MG TABLET PO SCH (16:24)
[2024-02-22] VITALS: BP 150/86; PULSE 76; RESP 19; TEMP 97.7
[2024-02-22 04:00] VITALS: BP 146/90; PULSE 75; RESP 19; TEMP 97.8
[2024-02-22 06:20] LABS: BASOPHILS % 0.9 % (0.0-2.0); EOSINOPHILS % 3.2 % (0.0-5.0); HEMATOCRIT. 29.8 % (42.0-52.0); HEMOGLOBIN. 10.1 g/dL (14.0-18.0); LYMPHOCYTES % 25.4 % (20.0-50.0); MEAN CORPUSCULAR HEMOGLOBIN 31.5 pg (28.0-32.0); MEAN CORPUSCULAR HGB CONC 33.8 g/dL (31.0-37.0); MEAN CORPUSCULAR VOLUME 93.3 fL (80.0-94.0); MEAN PLATELET VOLUME 9.2 fl (7.4-10.4); MONOCYTES % 9.8 % (2.0-8.0); NEUTROPHILS % 60.7 % (40.0-76.0); PLATELET 104 x1000/uL (130-400); RED BLOOD CELL COUNT 3.19 mill/uL (4.7-6.1); RED CELL DISTRIBUTION WIDTH 19.1 % (11.6-14.6); WHITE BLOOD COUNT 6.1 x1000/uL (4.5-11.0)
[2024-02-22 06:32] LABS: CHLORIDE 103 mEq/L (98-107); POTASSIUM 3.7 mEq/L (3.5-5.1); SODIUM 135 mEq/L (136-145)
[2024-02-22 06:35] LABS: CALCIUM 8.3 mg/dL (8.7-10.4); CARBON DIOXIDE 25 mEq/L (21-32)
[2024-02-22 06:40] LABS: CREATININE 1.5 mg/dL (0.6-1.3); GLUCOSE 97 mg/dL (70-105); UREA NITROGEN BLOOD 10 mg/dL (9-23)
[2024-02-22 06:42] LABS: ALANINE AMINOTRANSFERASE 50 IU/L (10-49); ALBUMIN 3.1 g/dL (3.2-4.8); ASPARTATE AMINOTRANSFERASE 108 IU/L (<34); BILIRUBIN DIRECT 0.6 mg/dL (<=3.0); BILIRUBIN TOTAL 1.2 mg/dL (0.1-1.0); PHOSPHORUS 3.3 mg/dL (2.5-4.9); PROTEIN TOTAL 6.3 g/dL (6.0-8.3)
[2024-02-22 08:00] VITALS: BP 149/98; PULSE 73; RESP 18; TEMP 98.6
[2024-02-22] MEDS ORDERED: HYDRALAZINE 20MG/ML VIAL IV PRN (09:00)
[2024-02-22] MEDS ORDERED: LIDOCAINE 2% 6ML GLYDO MM ONE (09:21)
[2024-02-22] MEDS ORDERED: FENTANYL CITRATE/PF 50MCG/ML 2ML VIAL ONE (09:21)
[2024-02-22] MEDS ORDERED: TETRACAINE/BENZOCAINE/BUTAMBEN 20 GM SPRAY MM ONE (09:21)
[2024-02-22] MEDS ORDERED: MIDAZOLAM HCL 5 MG/5 ML VIAL ONE (09:21)
[2024-02-22 10:08] LABS: A/G RATIO 0.6 (0.7-1.7); ALBUMIN 2.6 g/dL (2.9-4.4); ALPHA-1-GLOBULIN 0.3 g/dL (0.0-0.4); ALPHA-2-GLOBULIN 1.3 g/dL (0.4-1.0); GAMMA GLOBULINS 1.8 g/dL (0.4-1.8); GLOBULIN TOTAL 4.4 g/dL (2.2-3.9); M-SPIKE Not Observed g/dL (Not Observed)
[2024-02-22] MEDS ORDERED: MULT-230 MT (10:11)
[2024-02-22] MEDS ORDERED: COR3 PO (10:11)
[2024-02-22] MEDS ORDERED: THIA100T72 PO (10:11)
[2024-02-22] MEDS ORDERED: FOLI-43 PO (10:11)
[2024-02-22] MEDS ORDERED: PANT40TA51 PO (10:11)
[2024-02-22] MEDS ORDERED: SUCR1TAB30 PO (10:11)
[2024-02-22] MEDS ORDERED: SERT25TA74 PO (10:11)
[2024-02-22] MEDS: MAGNESIUM 2 G PREMIX 50 ML IV NR (10:39)
[2024-02-22 11:11] VITALS: BP 145/91; PULSE 74; TEMP 98.1; O2SAT 98
[2024-02-22] MEDS ORDERED: MAGNESIUM GLUCONATE 500MG TABLET PO NR (11:30)
[2024-02-22 12:00] VITALS: BP 145/91; PULSE 74; RESP 17; TEMP 97.6
== END 2024-02-22 12:05 | disposition home or self-care (01) | DRG 872 ==
LOC: ER 12:13 → EDBEDREQTM 15:52 → EDBEDREQ 15:52 → 8WST 22:17
PROVIDERS: ADMIT Family Medicine Adult Medicine; ATTEND Family Medicine Adult Medicine
DX: A41.9 Sepsis, unspecified organism (principal); N17.9 Acute kidney failure, unspecified; D68.00 Von Willebrand disease, unspecified; E87.1 Hypo-osmolality and hyponatremia; E87.4 Mixed disorder of acid-base balance; I13.0 Hypertensive heart and chronic kidney disease with heart failure and stage 1 through stage 4 chronic kidney disease, or unspecified chronic kidney disease; I50.32 Chronic diastolic (congestive) heart failure; B19.20 Unspecified viral hepatitis C without hepatic coma; D53.9 Nutritional anemia, unspecified; D69.6 Thrombocytopenia, unspecified; E78.5 Hyperlipidemia, unspecified; E83.42 Hypomagnesemia; E87.6 Hypokalemia; F10.10 Alcohol abuse, uncomplicated; F32.9 Major depressive disorder, single episode, unspecified; F41.1 Generalized anxiety disorder; I25.10 Atherosclerotic heart disease of native coronary artery without angina pectoris; N18.30 Chronic kidney disease, stage 3 unspecified; K21.9 Gastro-esophageal reflux disease without esophagitis; K29.70 Gastritis, unspecified, without bleeding; K44.9 Diaphragmatic hernia without obstruction or gangrene; K76.0 Fatty (change of) liver, not elsewhere classified; K80.20 Calculus of gallbladder without cholecystitis without obstruction; Z20.822 Contact with and (suspected) exposure to COVID-19; I95.9 Hypotension, unspecified; M10.9 Gout, unspecified; N28.1 Cyst of kidney, acquired; Z82.49 Family history of ischemic heart disease and other diseases of the circulatory system; Z88.6 Allergy status to analgesic agent
CPT/HCPCS: 36415; 36600; 71045; 71250; 74176; 76700; 80048; 80053; 80076; 81003; 82375; 82533; 82570; 82607; 82746; 82784; 82805; 82977; 83735; 83883; 83935; 84100; 84145; 84155; 84156; 84165; 84443; 84484; 85025; 86334; 86705; 86709; 87340; 87804; 93005; 93306; 93312; 93880; 99291; J0696; J2250; J2405; J3010; J3475; J3490; J7040; J7060

== ENCOUNTER 2025-08-30 13:54 | Inpatient (IN) | payer OTHER ==
[~2025-08-30] VITALS: Ht 175.3 cm; Wt 118.5 kg
[~2025-08-30 13:54] MED LIST changes: +ALLO100T MT; -ATOR20TA65 PO; -CARV6.2548 PO; +COLC0.6C3 PO; +COR3 PO; +DAPA5TAB PO; +FOLI-43 PO; -FURO40TA5 PO; -ISOS1TAB2 PO; +MAGN400C PO; +MULT-230 MT; +PANT40TA51 PO; +SERT25TA74 PO; +SUCR1TAB30 PO; +THIA100T72 PO
[2025-08-30] MEDS: ALBUTEROL (0.083%) 2.5MG/3ML NEB HHN ONE (14:45)
[2025-08-30] MEDS: IPRATROPIUM BROMIDE (0.02%) 0.5MG/2.5ML NEB HHN ONE (14:45)
[2025-08-30 14:59] VITALS: RESP 24
[2025-08-30] MEDS: FUROSEMIDE 40MG/4ML VIAL IV ONE (15:30)
[2025-08-30 15:48] LABS: BASOPHILS % 0.9 % (0.0-2.0); EOSINOPHILS % 0.2 % (0.0-5.0); HEMATOCRIT. 23.6 % (42.0-52.0); HEMOGLOBIN. 7.4 g/dL (14.0-18.0); LYMPHOCYTES % 9.7 % (20.0-50.0); MEAN PLATELET VOLUME 9.1 fl (7.4-10.4); MONOCYTES % 8.9 % (2.0-8.0); NEUTROPHILS % 80.3 % (40.0-76.0); PLATELET 102 x1000/uL (130-400); RED BLOOD CELL COUNT 2.36 mill/uL (4.7-6.1); RED CELL DISTRIBUTION WIDTH 14.0 % (11.6-14.6)
[2025-08-30 16:00] LABS: INR 1.1
[2025-08-30 16:03] LABS: CREATININE 0.8 mg/dL (0.6-1.3); UREA NITROGEN BLOOD 15 mg/dL (9-23)
[2025-08-30 16:05] LABS: ASPARTATE AMINOTRANSFERASE 33 IU/L (<34); BILIRUBIN DIRECT 0.4 mg/dL (<=3.0); BILIRUBIN TOTAL 1.2 mg/dL (0.1-1.0); PROTEIN TOTAL 4.5 g/dL (6.0-8.3)
[2025-08-30 16:06] VITALS: RESP 23
[2025-08-30 16:12] LABS: TROPONIN I HIGH SENSITIVITY 70 ng/L (3.0-53)
[2025-08-30 16:20] LABS: CLARITY URINE CLEAR (CLEAR); COLOR URINE YELLOW (YELLOW); GLUCOSE URINE 2+ (NEGATIVE); KETONES URINE NEGATIVE (NEGATIVE); LEUKOCYTE ESTERASE URINE NEGATIVE (NEGATIVE); NITRITE URINE NEGATIVE (NEGATIVE); OCCULT BLOOD URINE TRACE (NEGATIVE); PH URINE 6.5 (4.5-8.0); PROTEIN URINE 3+ (NEGATIVE); SPECIFIC GRAVITY URINE 1.014 (1.005-1.030); UROBILINOGEN URINE 1.0 E.U./dL (0.2-1.0)
[2025-08-30 16:29] LABS: *AMPHETAMINES SCREEN URINE NEGATIVE (NEGATIVE); *BARBITURATES SCREEN URINE NEGATIVE (NEGATIVE); *BENZODIAZEPINES SCREEN URINE NEGATIVE (NEGATIVE); *COCAINE SCREEN URINE NEGATIVE (NEGATIVE); CANNABINOID URINE SCREEN NEGATIVE (NEGATIVE); ECSTASY MDMA SCREEN URINE NEGATIVE (NEGATIVE); METHADONE URINE SCREEN NEGATIVE (NEGATIVE); OPIATES URINE SCREEN NEGATIVE (NEGATIVE); PHENCYCLIDINE URINE SCREEN NEGATIVE (NEGATIVE)
[2025-08-30 16:36] LABS: BG DEOXYHEMOGLOBIN 9.4 % (0.0-5.0)
[2025-08-30 16:43] LABS: BACTERIA URINE TRACE; RBC URINE 0-2 /hpf (0-2); SQUAMOUS EPITHELIAL CELL URINE RARE /lpf (RARE/1+); WBC URINE 0-2 /hpf (0-2)
[2025-08-30] MEDS ORDERED: DEXTROSE 50% WATER 50ML SYRINGE IV PRN (17:15)
[2025-08-30] MEDS: CALCIUM GLUCONATE 1GM PREMIX 50 ML IV SCH (17:25)
[2025-08-30] MEDS: POTASSIUM CHLORIDE 20MEQ/PACKET PO SCH (17:26)
[2025-08-30] MEDS ORDERED: ACETAMINOPHEN 650MG SUPP PR PRN ×2 (17:30)
[2025-08-30] MEDS ORDERED: ONDANSETRON HCL 4MG/2ML INJ IV PRN (17:30)
[2025-08-30] MEDS ORDERED: IPRATROPIUM/ALBUTEROL 0.5-3(2.5)MG/3ML NEB HHN PRN (17:30)
[2025-08-30] MEDS: AMLODIPINE 5MG TABLET PO SCH (17:31)
[2025-08-30 18:09] LABS: TROPONIN I HIGH SENSITIVITY 87 ng/L (3.0-53)
[2025-08-30] MEDS: KCL 20MEQ/100ML PREMIX 100 ML IV SCH (18:21)
[2025-08-30 19:24] LABS: PHOSPHORUS 1.3 mg/dL (2.5-4.9)
[2025-08-30 20:27] VITALS: RESP 22; RESP 31
[2025-08-30 20:27] LABS: TRIGLYCERIDE 123 mg/dL (0-150)
[2025-08-30 20:28] LABS: CREATINE KINASE MB FRACTION 3.2 ng/mL (0.5-3.6); LDL CHOLESTEROL 265 mg/dL (5-100)
[2025-08-30 20:32] LABS: FOLIC ACID (FOLATE) SERUM 19.01 ng/mL (>5.38)
[2025-08-30 20:33] LABS: VITAMIN B12 SERUM 761 pg/mL (211-911)
[2025-08-30] MEDS: SACUBITRIL/VALSARTAN 49MG/51MG TABLET PO SCH (21:00)
[2025-08-30] MEDS: BLOOD SUGAR DIAGNOSTIC STRIP TEST SCH (21:00)
[2025-08-30 21:43] LABS: BG BASE EXCESS 2.0 mmol/L (-2.0-3.0); BG CARBOXYHEMOGLOBIN 0.7 % (0.5-1.5); BG DEOXYHEMOGLOBIN 0.5 % (0.0-5.0); BG FRACTION INSPIRED OXYGEN 40; BG HCO3 ACT 25.5 mmol/L (21.0-28.0); BG METHEMOGLOBIN 0.0 % (0.5-1.5); BG OXYGEN SATURATION 99.5 % (94.0-98.0); BG OXYHEMOGLOBIN 98.8 % (94.0-98.0); BG PCO2 36.1 mmHg (35.0-48.0); BG PH 7.467 (7.350-7.450); BG PO2 153.9 mmHg (83.0-108.0); BG SAMPLE SITE RIGHT RADIAL; BG TOTAL HEMOGLOBIN 13.2 g/dL (13.5-17.5); BG VENT MODE MASK - BIPAP; BG VENT RATE 16.0 set
[2025-08-30] MEDS: PANTOPRAZOLE SODIUM 40 MG/VIAL IV SCH (21:48)
[2025-08-30] MEDS: CARVEDILOL 6.25 MG TABLET PO SCH (21:51)
[2025-08-30] MEDS: SUCRALFATE 1G TABLET PO SCH (21:51)
[2025-08-30 23:49] LABS: TROPONIN I HIGH SENSITIVITY 132 ng/L (3.0-53)
[2025-08-31] VITALS (18 sets, daily range): BP systolic 129–153; BP diastolic 90–120; PULSE 98–115; RESP 17–28; TEMP 36.1–36.9184; O2SAT 91–100
[2025-08-31] MEDS: IPRATROPIUM/ALBUTEROL 0.5-3(2.5)MG/3ML NEB HHN SCH (02:52)
[2025-08-31] MEDS: MAGNESIUM 4 G PREMIX 100 ML IV NR (06:39)
[2025-08-31] MEDS: SODIUM PHOSPHATE 20 MMOL in DEXT 5% WATER 243.3333 ML IV NR (06:53)
[2025-08-31] MEDS: THIAMINE HCL 100MG TABLET PO SCH (08:21)
[2025-08-31] MEDS: ALLOPURINOL 100 MG TABLET PO SCH (08:21)
[2025-08-31] MEDS: FOLIC ACID 1MG TABLET PO SCH (08:21)
[2025-08-31] MEDS: SERTRALINE HCL 25MG TABLET PO SCH (08:21)
[2025-08-31] MEDS ORDERED: FUROSEMIDE 40MG/4ML VIAL IVP SCH (09:00)
[2025-08-31 09:22] LABS: TRIGLYCERIDE 113.0 mg/dL (0-150); UREA NITROGEN BLOOD 18.0 mg/dL (9-23)
[2025-08-31 09:23] LABS: LDL CHOLESTEROL 241.0 mg/dL (5-100)
[2025-08-31 09:24] LABS: TROPONIN I HIGH SENSITIVITY 105 ng/L (3.0-53)
[2025-08-31 09:25] LABS: CREATININE 2.0 mg/dL (0.6-1.3); T4 FREE 1.26 ng/dL (0.89-1.76)
[2025-08-31 09:31] LABS: BASOPHILS % 1.0 % (0.0-2.0); EOSINOPHILS % 2.0 % (0.0-5.0); HEMATOCRIT. 36.9 % (42.0-52.0); HEMOGLOBIN. 11.8 g/dL (14.0-18.0); LYMPHOCYTES % 14.3 % (20.0-50.0); MEAN PLATELET VOLUME 9.9 fl (7.4-10.4); MONOCYTES % 9.4 % (2.0-8.0); NEUTROPHILS % 73.3 % (40.0-76.0); PLATELET 158 x1000/uL (130-400); RED BLOOD CELL COUNT 3.73 mill/uL (4.7-6.1); RED CELL DISTRIBUTION WIDTH 14.7 % (11.6-14.6)
[2025-08-31] MEDS ORDERED: LIDOCAINE HCL 1% 10 MG/ML 10ML VIAL ONE (10:10)
[2025-08-31] MEDS: FUROSEMIDE 40MG/4ML VIAL IVP SCH ×2 (12:23→17:08)
[2025-08-31] MEDS: ATORVASTATIN CALCIUM 40MG TABLET PO SCH (21:24)
[2025-08-31] MEDS: CARVEDILOL 12.5MG TABLET PO SCH (21:28)
[2025-09-01] VITALS (15 sets, daily range): BP systolic 100–141; BP diastolic 75–100; PULSE 79–108; RESP 15–27; TEMP 36.7–37.3; O2SAT 87–100
[2025-09-01 08:22] LABS: BASOPHILS % 0.9 % (0.0-2.0); EOSINOPHILS % 3.3 % (0.0-5.0); HEMATOCRIT. 34.6 % (42.0-52.0); HEMOGLOBIN. 11.0 g/dL (14.0-18.0); LYMPHOCYTES % 13.3 % (20.0-50.0); MEAN PLATELET VOLUME 9.1 fl (7.4-10.4); MONOCYTES % 9.7 % (2.0-8.0); NEUTROPHILS % 72.8 % (40.0-76.0); PLATELET 141 x1000/uL (130-400); RED BLOOD CELL COUNT 3.54 mill/uL (4.7-6.1); RED CELL DISTRIBUTION WIDTH 14.5 % (11.6-14.6)
[2025-09-01 08:38] LABS: CREATININE 1.9 mg/dL (0.6-1.3); UREA NITROGEN BLOOD 36 mg/dL (9-23)
[2025-09-01 08:40] LABS: PHOSPHORUS 5.3 mg/dL (2.5-4.9)
[2025-09-01] MEDS: FAMOTIDINE 20MG/2ML VIAL IV SCH (08:53)
[2025-09-02] VITALS (10 sets, daily range): BP systolic 103–129; BP diastolic 74–101; PULSE 86–110; RESP 17–28; TEMP 36.3–37.1; O2SAT 92–100
[2025-09-02 08:50] LABS: BASOPHILS % 0.8 % (0.0-2.0); EOSINOPHILS % 2.7 % (0.0-5.0); HEMATOCRIT. 36.4 % (42.0-52.0); HEMOGLOBIN. 11.3 g/dL (14.0-18.0); LYMPHOCYTES % 11.3 % (20.0-50.0); MEAN PLATELET VOLUME 9.5 fl (7.4-10.4); MONOCYTES % 11.7 % (2.0-8.0); NEUTROPHILS % 73.5 % (40.0-76.0); PLATELET 164 x1000/uL (130-400); RED BLOOD CELL COUNT 3.74 mill/uL (4.7-6.1); RED CELL DISTRIBUTION WIDTH 14.8 % (11.6-14.6)
[2025-09-02 09:10] LABS: CREATININE 1.2 mg/dL (0.6-1.3); UREA NITROGEN BLOOD 26 mg/dL (9-23)
[2025-09-02 09:11] LABS: ASPARTATE AMINOTRANSFERASE 27 IU/L (<34)
[2025-09-02 09:12] LABS: BILIRUBIN DIRECT 0.3 mg/dL (<=3.0); BILIRUBIN TOTAL 0.9 mg/dL (0.1-1.0); PROTEIN TOTAL 4.4 g/dL (6.0-8.3)
[2025-09-02] MEDS ORDERED: CALCIUM GLUCONATE 1,000 MG in DEXT 5% WATER 90 ML IV ONE (10:00)
[2025-09-02] MEDS: POTASSIUM CHLORIDE 20MEQ TABLET SR PO SCH ×2 (10:32→17:47)
[2025-09-02] MEDS: CALCIUM GLUCONATE 1GM PREMIX 50 ML IV SCH (10:41)
[2025-09-02] MEDS: MAGNESIUM 4 G PREMIX 100 ML IV SCH (10:41)
[2025-09-02] MEDS ORDERED: CARV12.545 MT (12:09)
[2025-09-02] MEDS ORDERED: AMLO5TAB88 MT (12:09)
[2025-09-02] MEDS ORDERED: FAMO20TA8 MT ×2 (12:09→12:13)
[2025-09-02] MEDS ORDERED: MAGN400C MT (12:09)
[2025-09-02] MEDS ORDERED: ATOR40TA70 MT (12:09)
[2025-09-02] MEDS ORDERED: FURO40TA5 MT (12:09)
[2025-09-02] MEDS ORDERED: POTA10CA93 MT (12:09)
[2025-09-02 17:36] LABS: UREA NITROGEN BLOOD 41 mg/dL (9-23)
[2025-09-02 17:41] LABS: CREATININE 2.1 mg/dL (0.6-1.3)
== END 2025-09-02 18:35 | disposition home or self-care (01) | DRG 280 ==
LOC: ER 13:54 → 5EST 16:56 → EDBEDREQ 17:07 → EDBEDREQTM 17:07 → ENRESERV 23:57
PROVIDERS: ADMIT Hospitalist; ATTEND Hospitalist
PROC: 5A09357 Assistance with Respiratory Ventilation, Less than 24 Consecutive Hours, Continuous Positive Airway Pressure (ICD-10-PCS; principal; 2025-08-31)
PROC: 02HV33Z Insertion of Infusion Device into Superior Vena Cava, Percutaneous Approach (ICD-10-PCS; 2025-08-31)
PROC: B548ZZA Ultrasonography of Superior Vena Cava, Guidance (ICD-10-PCS; 2025-08-31)
PROC: 5A09357 Assistance with Respiratory Ventilation, Less than 24 Consecutive Hours, Continuous Positive Airway Pressure (ICD-10-PCS; 2025-09-01)
DX: I13.0 Hypertensive heart and chronic kidney disease with heart failure and stage 1 through stage 4 chronic kidney disease, or unspecified chronic kidney disease (principal); D66 Hereditary factor VIII deficiency; I21.A1 Myocardial infarction type 2; I50.43 Acute on chronic combined systolic (congestive) and diastolic (congestive) heart failure; J96.00 Acute respiratory failure, unspecified whether with hypoxia or hypercapnia; N17.9 Acute kidney failure, unspecified; E78.5 Hyperlipidemia, unspecified; N18.9 Chronic kidney disease, unspecified; M10.9 Gout, unspecified; D63.1 Anemia in chronic kidney disease; E87.6 Hypokalemia; E83.51 Hypocalcemia; B19.20 Unspecified viral hepatitis C without hepatic coma; E83.42 Hypomagnesemia; I25.10 Atherosclerotic heart disease of native coronary artery without angina pectoris; E66.9 Obesity, unspecified; E83.52 Hypercalcemia; I42.0 Dilated cardiomyopathy; E87.5 Hyperkalemia; F10.90 Alcohol use, unspecified, uncomplicated; E03.8 Other specified hypothyroidism; Z79.899 Other long term (current) drug therapy; Z88.6 Allergy status to analgesic agent; Z68.38 Body mass index [BMI] 38.0-38.9, adult
CPT/HCPCS: 36415; 36573; 36600; 71045; 80048; 80061; 80076; 80305; 80320; 81003; 82330; 82375; 82550; 82553; 82607; 82728; 82746; 82803; 82805; 82962; 83036; 83540; 83550; 83735; 83880; 84100; 84132; 84439; 84443; 84484; 85025; 85379; 93005; 93306; 93970; 94070; 94618; 94640; 94660; 94664; 96374; 98960; 99291; A4606; C1725; J0612; J1308; J1938; J2003; J2470; J3475; J3480; J3490; J7060; G0480